=== PATIENT | male | born 1935 | race Caucasian/White ===

== ENCOUNTER 2016-08-10 11:40 | Emergency (ER) | payer MEDICARE, OTHER | END 2016-08-10 14:27 | disposition home or self-care (01) | LOC: FASTR 11:40 | DX: M77.11 Lateral epicondylitis, right elbow (principal) | CPT/HCPCS: 80053; 83605; 84550; 85025; 85652; 86141 ==

== ENCOUNTER 2016-08-22 12:36 | Emergency (ER) | payer MEDICARE, OTHER | END 2016-08-22 14:05 | disposition home or self-care (01) | LOC: FASTR 12:36 | DX: S83.91XA Sprain of unspecified site of right knee, initial encounter (principal); X50.1XXA Overexertion from prolonged static or awkward postures, initial encounter; Y92.019 Unspecified place in single-family (private) house as the place of occurrence of the external cause ==